=== PATIENT | male | born 1970 | race African-American/Black ===

== ENCOUNTER 2022-01-23 07:02 | Inpatient (IN) ==
[~2022-01-23 07:02] MED LIST: LACTATED RINGERS 1,000 ML IV SCH
[2022-01-23 07:14] LABS: Basophils # 0.1 10*3/uL (0.0-0.2); Basophils % 0.6 % (0.0-0.8); Eosinophils # 0.4 10*3/uL (0.0-0.87); Eosinophils % 2.4 % (0.00-10.9); Hemoglobin 9.2 GM/DL (14.0-18.0); Immature Granulocytes % 0.8 %; Immature Granulocytes Absolute 0.14 #; Lymphocytes # 1.4 10*3/uL (1.4-4.0); Mean Corpuscular HGB Conc 30.7 GM/DL (32-36); Mean Corpuscular Volume 95.8 FL (87-102); Mean Platelet Volume 9.6 FL (9.6-12.0); Monocytes # 2.2 10*3/uL (0.11-0.8); NRBC # 0.04 10*3/uL; Neutrophils % 75.2 % (38.7-73.9); Platelet Count 257 T/CUMM (130-400); Red Blood Count 3.13 MC/CUMM (3.8-5.5); Red Cell Distribution Width 16.4 % (9.3-17.3)
[2022-01-23] MEDS ORDERED: DIAZEPAM 5 MG TABLET PO ONE (07:16)
[2022-01-23 08:12] LABS: Albumin 1.6 G/DL (3.4-5.0); Calcium 8.1 MG/DL (8.5-10.1); Osmolality,Calculated 279.8 MOS/KG (273-304); Potassium 4.3 MMOL/L (3.5-5.1); Total Protein 6.9 G/DL (6.4-8.2)
[2022-01-23] MEDS ORDERED: SEVOFLURANE 1 UNIT/15 MINUTE INH ONE ×7 (09:26→12:37)
[2022-01-23] MEDS ORDERED: propofoL 200 MG/20 ML VIAL IV ONE (09:26)
[2022-01-23] MEDS ORDERED: fentaNYL 100 MCG/2 ML VIAL ONE (09:26)
[2022-01-23] MEDS ORDERED: KETAMINE 500 MG/10 ML VIAL ONE (09:26)
[2022-01-23] MEDS ORDERED: ROCURONIUM 50 MG/5 ML VIAL IV ONE ×2 (09:26→12:15)
[2022-01-23] MEDS ORDERED: LIDOCAINE 2% 5 ML VIAL ONE (09:26)
[2022-01-23] MEDS ORDERED: MIDAZOLAM 2 MG/2 ML VIAL ONE (09:38)
[2022-01-23] MEDS ORDERED: fentaNYL 250 MCG/5 ML VIAL ONE (09:38)
[2022-01-23] MEDS ORDERED: SUFentanil 50 MCG/ML AMP ONE (10:22)
[2022-01-23] MEDS ORDERED: SODIUM CHLORIDE 0.9% 100 ML IV ONE (11:05)
[2022-01-23] MEDS ORDERED: PHENYLEPHRINE 10 MG/1 ML VIAL IV ONE (11:06)
[2022-01-23 11:30] LABS: Protein,Urine Negative (Negative); Urine Appearance Clear (Clear); Urine Color Yellow (Yellow)
[2022-01-23 11:31] LABS: Bilirubin,Urine Negative (Negative); Blood, Urine Negative (Negative); Glucose,Urine (UA) 100 mg/dL (Negative); Ketones,Urine Negative (Negative); Nitrite,Urine Negative (Negative); Urine Urobilinogen 0.2 eU/dL (<2.0)
[2022-01-23 11:32] LABS: RBC,Urine 1 /HPF (0-4)
[2022-01-23] MEDS ORDERED: LACTATED RINGERS 0 ML IV ONE (11:52)
[2022-01-23] MEDS ORDERED: PHENYLEPHRINE 1 MG/10 ML SYRINGE IV ONE (11:52)
[2022-01-23] MEDS ORDERED: NEOSTIGMINE 10 MG/10 ML VIAL ONE (12:15)
[2022-01-23] MEDS ORDERED: GLYCOPYRROLATE 0.4 MG/2 ML VIAL ONE (12:15)
[2022-01-23] MEDS ORDERED: ONDANSETRON 4 MG/2 ML VIAL ONE (12:16)
[2022-01-23] MEDS ORDERED: ONDANSETRON 4 MG/2 ML VIAL IV PRN ×2 (12:29→12:50)
[2022-01-23] MEDS ORDERED: oxyCODONE/ACETAMINOPHEN 5-325 MG TABLET PO PRN ×2 (12:29)
[2022-01-23] MEDS ORDERED: ACETAMINOPHEN 325 MG TABLET PO PRN (12:29)
[2022-01-23] MEDS ORDERED: LACTATED RINGERS 1,000 ML IV ONE (12:36)
[2022-01-23] MEDS: HYDROmorphone 1 MG/1 ML SYRINGE IV PRN ×4 (12:51→20:03)
[2022-01-23] MEDS: MEPERIDINE 25 MG/1 ML VIAL IV PRN ×2 (13:01→13:20)
[2022-01-23] MEDS ORDERED: MEPERIDINE 25 MG/1 ML VIAL ONE (13:01)
[2022-01-23] MEDS ORDERED: MEPERIDINE 50 MG/1 ML VIAL ONE (13:20)
[2022-01-23] MEDS: PIPERACILLIN/TAZOBACTAM 3,375 MG in SODIUM CHLORIDE 0.9% 100 ML IV SCH ×2 (14:21→20:06)
[2022-01-23] MEDS ORDERED: ALBUTEROL/IPRATROPIUM 3 ML NEB RESP TX PRN (15:10)
[2022-01-23] MEDS ORDERED: GLUCAGON 1 MG VIAL IM PRN (15:13)
[2022-01-23] MEDS ORDERED: DEXTROSE 10% 250 ML BAG IV PRN (15:13)
[2022-01-23] MEDS ORDERED: ENOXAPARIN 40 MG/0.4 ML SYRINGE SUBCUT SCH (15:30)
[2022-01-23] MEDS: INSULIN LISPRO 100 UNIT/ML SUBCUT SCH ×2 (16:56→20:05)
[2022-01-24] MEDS: HYDROmorphone 1 MG/1 ML SYRINGE IV PRN ×3 (01:23→12:10)
[2022-01-24] MEDS: PIPERACILLIN/TAZOBACTAM 3,375 MG in SODIUM CHLORIDE 0.9% 100 ML IV SCH ×3 (05:31→20:51)
[2022-01-24 05:59] LABS: Basophils # 0.1 10*3/uL (0.0-0.2); Basophils % 0.2 % (0.0-0.8); Hematocrit 27.6 VOL% (42.0-52.0); Hemoglobin 8.5 GM/DL (14.0-18.0); Immature Granulocytes % 0.9 %; Immature Granulocytes Absolute 0.25 #; Lymphocytes # 0.8 10*3/uL (1.4-4.0); Lymphocytes % 2.8 % (21.2-54.2); Mean Corpuscular HGB Conc 30.8 GM/DL (32-36); Mean Corpuscular Volume 95.2 FL (87-102); Mean Platelet Volume 9.5 FL (9.6-12.0); Monocytes # 2.4 10*3/uL (0.11-0.8); Monocytes % 8.6 % (1.7-12.7); Neutrophils % 87.5 % (38.7-73.9); Platelet Count 232 T/CUMM (130-400); Red Cell Distribution Width 16.1 % (9.3-17.3); White Blood Count 28.2 T/CUMM (4-12)
[2022-01-24 06:20] LABS: Albumin 1.4 G/DL (3.4-5.0); Bilirubin,Total 1.5 MG/DL (0.20-1.00); Calcium 8.1 MG/DL (8.5-10.1); Osmolality,Calculated 282.7 MOS/KG (273-304); Potassium 4.7 MMOL/L (3.5-5.1); Total Protein 6.1 G/DL (6.4-8.2)
[2022-01-24 06:22] LABS: Band Neutrophils 2 % (0-10); Eosinophils 1 % (0-10); Hypochromia 1+; Lymphocytes 1 % (20-55); Platelet Estimate Normal; Total Cells Counted 100
[2022-01-24] MEDS: hydrALAZINE 10 MG TABLET PO SCH ×3 (08:41→20:52)
[2022-01-24] MEDS: INSULIN LISPRO 100 UNIT/ML SUBCUT SCH ×4 (08:41→20:52)
[2022-01-24] MEDS: PANTOPRAZOLE 40 MG TABLET PO SCH (08:41)
[2022-01-24] MEDS: POLYETHYLENE GLYCOL POWDER 17 GM PACK PO SCH (08:41)
[2022-01-24] MEDS: METOPROLOL TARTRATE 100 MG TABLET PO SCH ×2 (08:41→20:52)
[2022-01-24] MEDS ORDERED: NALOXONE 0.4 MG/ML VIAL IV PRN (12:42)
[2022-01-24] MEDS: LACTATED RINGERS 1,000 ML IV SCH (13:35)
[2022-01-24] MEDS: HYDROmorphone PCA 30 MG/30 ML SYRINGE IV SCH (13:35)
[2022-01-24] MEDS ORDERED: HEPARIN 5,000 UNIT/1 ML VIAL SUBCUT SCH (21:00)
[2022-01-25] MEDS: PIPERACILLIN/TAZOBACTAM 3,375 MG in SODIUM CHLORIDE 0.9% 100 ML IV SCH ×3 (04:21→21:13)
[2022-01-25 05:59] LABS: Basophils # 0.1 10*3/uL (0.0-0.2); Basophils % 0.2 % (0.0-0.8); Immature Granulocytes % 1.3 %; Immature Granulocytes Absolute 0.41 #; Lymphocytes # 0.9 10*3/uL (1.4-4.0); Lymphocytes % 2.8 % (21.2-54.2); Mean Corpuscular HGB Conc 30.8 GM/DL (32-36); Mean Corpuscular Volume 94.2 FL (87-102); Mean Platelet Volume 10.6 FL (9.6-12.0); Monocytes # 2.6 10*3/uL (0.11-0.8); Monocytes % 8.3 % (1.7-12.7); Neutrophils % 87.4 % (38.7-73.9); Platelet Count 196 T/CUMM (130-400); Red Blood Count 2.76 MC/CUMM (3.8-5.5); Red Cell Distribution Width 16.1 % (9.3-17.3); White Blood Count 31.7 T/CUMM (4-12)
[2022-01-25 06:20] LABS: Hypochromia Slight; Lymphocytes 3 % (20-55); Microcytosis Slight; Platelet Estimate Adequate; Total Cells Counted 100
[2022-01-25 06:27] LABS: Albumin 1.3 G/DL (3.4-5.0); Bilirubin,Total 1.2 MG/DL (0.20-1.00); Calcium 8.1 MG/DL (8.5-10.1); Osmolality,Calculated 276.2 MOS/KG (273-304); Potassium 4.3 MMOL/L (3.5-5.1); Total Protein 6.6 G/DL (6.4-8.2)
[2022-01-25] MEDS ORDERED: MAGNESIUM HYDROXIDE SUSP 30 ML UDCUP PO ONE (09:02)
[2022-01-25] MEDS: INSULIN LISPRO 100 UNIT/ML SUBCUT SCH ×4 (09:04→21:14)
[2022-01-25] MEDS: PANTOPRAZOLE 40 MG TABLET PO SCH (09:04)
[2022-01-25] MEDS: METOPROLOL TARTRATE 100 MG TABLET PO SCH ×2 (09:04→21:15)
[2022-01-25] MEDS: INSULIN GLARGINE 100 UNIT/ML SUBCUT SCH (09:04)
[2022-01-25] MEDS: hydrALAZINE 10 MG TABLET PO SCH ×3 (09:04→21:15)
[2022-01-25] MEDS: POLYETHYLENE GLYCOL POWDER 17 GM PACK PO SCH (09:25)
[2022-01-25] MEDS: DOCUSATE SODIUM 100 MG CAPSULE PO SCH ×2 (09:40→21:15)
[2022-01-25] MEDS: LACTATED RINGERS 1,000 ML IV SCH (21:14)
[2022-01-25] MEDS ORDERED: BISACODYL 10 MG SUPP RECTAL ONE (22:15)
[2022-01-26] MEDS: PIPERACILLIN/TAZOBACTAM 3,375 MG in SODIUM CHLORIDE 0.9% 100 ML IV SCH ×2 (04:36→15:20)
[2022-01-26 05:12] LABS: Basophils # 0.1 10*3/uL (0.0-0.2); Basophils % 0.2 % (0.0-0.8); Eosinophils % 0.1 % (0.00-10.9); Hematocrit 26.9 VOL% (42.0-52.0); Hemoglobin 8.4 GM/DL (14.0-18.0); Immature Granulocytes % 1.6 %; Immature Granulocytes Absolute 0.49 #; Lymphocytes # 1.1 10*3/uL (1.4-4.0); Lymphocytes % 3.6 % (21.2-54.2); Mean Corpuscular HGB Conc 31.2 GM/DL (32-36); Mean Corpuscular Volume 91.8 FL (87-102); Mean Platelet Volume 9.9 FL (9.6-12.0); Monocytes # 1.8 10*3/uL (0.11-0.8); Monocytes % 5.8 % (1.7-12.7); Neutrophils % 88.7 % (38.7-73.9); Platelet Count 239 T/CUMM (130-400); Red Blood Count 2.93 MC/CUMM (3.8-5.5); Red Cell Distribution Width 15.8 % (9.3-17.3); White Blood Count 31.4 T/CUMM (4-12)
[2022-01-26 05:34] LABS: Hypochromia Slight; Lymphocytes 2 % (20-55); Microcytosis Slight; Platelet Estimate Adequate; Total Cells Counted 100
[2022-01-26 05:44] LABS: Albumin 1.3 G/DL (3.4-5.0); Bilirubin,Total 1.1 MG/DL (0.20-1.00); Calcium 8.4 MG/DL (8.5-10.1); Osmolality,Calculated 274.2 MOS/KG (273-304); Potassium 3.7 MMOL/L (3.5-5.1); Total Protein 6.8 G/DL (6.4-8.2)
[2022-01-26] MEDS ORDERED: LACTATED RINGERS 1,000 ML IV SCH (08:30)
[2022-01-26] MEDS ORDERED: ONDANSETRON 4 MG/2 ML VIAL ONE (08:47)
[2022-01-26] MEDS ORDERED: MIDAZOLAM 2 MG/2 ML VIAL ONE (08:47)
[2022-01-26] MEDS ORDERED: propofoL 200 MG/20 ML VIAL IV ONE (08:47)
[2022-01-26] MEDS ORDERED: LIDOCAINE 2% 5 ML VIAL ONE (08:47)
[2022-01-26] MEDS ORDERED: fentaNYL 100 MCG/2 ML VIAL ONE (08:47)
[2022-01-26] MEDS ORDERED: LINEZOLID INJ 600 MG/300 ML PREMIX IV SCH (10:00)
[2022-01-26] MEDS ORDERED: ONDANSETRON 4 MG/2 ML VIAL IV PRN (10:14)
[2022-01-26] MEDS ORDERED: HYDROmorphone 1 MG/1 ML SYRINGE IV PRN ×3 (10:14→11:59)
[2022-01-26] MEDS: HYDROmorphone PCA 30 MG/30 ML SYRINGE IV SCH (11:09)
[2022-01-26] MEDS: INSULIN LISPRO 100 UNIT/ML SUBCUT SCH ×2 (11:09→12:04)
[2022-01-26 12:02] VITALS: BP 134/84
[2022-01-26] MEDS: PANTOPRAZOLE 40 MG TABLET PO SCH (12:03)
[2022-01-26] MEDS: DOCUSATE SODIUM 100 MG CAPSULE PO SCH (12:03)
[2022-01-26] MEDS: hydrALAZINE 10 MG TABLET PO SCH ×2 (12:03→15:20)
[2022-01-26] MEDS: INSULIN GLARGINE 100 UNIT/ML SUBCUT SCH (12:04)
[2022-01-26] MEDS: POLYETHYLENE GLYCOL POWDER 17 GM PACK PO SCH (12:05)
[2022-01-26] MEDS: METOPROLOL TARTRATE 100 MG TABLET PO SCH (12:08)
== END 2022-01-26 15:00 | DRG 475 ==
LOC: N.OR 07:02 → N.SDSINP 07:03 → N.3E 12:29
PROVIDERS: ADMIT Surgery; ATTEND Surgery

== ENCOUNTER 2022-03-06 14:48 | Inpatient (IN) ==
[2022-03-06] MEDS ORDERED: LACTATED RINGERS 1,000 ML IV ONE (15:28)
[2022-03-06 16:06] LABS: Basophils # 0.1 10*3/uL (0.0-0.2); Basophils % 0.8 % (0.0-0.8); Eosinophils # 0.1 10*3/uL (0.0-0.87); Eosinophils % 0.5 % (0.00-10.9); Hematocrit 27.9 VOL% (42.0-52.0); Hemoglobin 8.6 GM/DL (14.0-18.0); Lymphocytes # 1.6 10*3/uL (1.4-4.0); Lymphocytes % 12.1 % (21.2-54.2); Mean Corpuscular HGB Conc 30.8 GM/DL (32-36); Mean Corpuscular Volume 81.3 FL (87-102); Mean Platelet Volume 8.9 FL (9.6-12.0); Monocytes # 1.3 10*3/uL (0.11-0.8); Monocytes % 10.1 % (1.7-12.7); Neutrophils % 72.7 % (38.7-73.9); Platelet Count 558 T/CUMM (130-400); Red Blood Count 3.43 MC/CUMM (3.8-5.5); Red Cell Distribution Width 17.3 % (9.3-17.3); White Blood Count 12.9 T/CUMM (4-12)
[2022-03-06 16:09] LABS: Bilirubin,Total 0.5 MG/DL (0.20-1.00); Calcium 8.7 MG/DL (8.5-10.1); Osmolality,Calculated 270.4 MOS/KG (273-304); Potassium 3.6 MMOL/L (3.5-5.1); Total Protein 7.4 G/DL (6.4-8.2)
[2022-03-06 16:19] LABS: INR 1.1; PT Patient Result 12.1 SECS (10.1-12.1); Partial Thromboplastin Time 28.8 SECS (23.7-32.9)
[2022-03-06] MEDS ORDERED: ACETAMINOPHEN 325 MG TABLET PO PRN (16:23)
[2022-03-06] MEDS ORDERED: ZALEPLON 5 MG CAPSULE PO PRN (16:45)
[2022-03-06] MEDS ORDERED: MORPHINE 2 MG/1 ML SYRINGE IV PRN (16:45)
[2022-03-06] MEDS ORDERED: ALBUTEROL 2.5 MG/3 ML NEB RESP TX PRN (16:45)
[2022-03-06] MEDS ORDERED: hydrALAZINE 20 MG/1 ML VIAL IV PRN (16:45)
[2022-03-06] MEDS ORDERED: ONDANSETRON 4 MG/2 ML VIAL IV PRN (16:45)
[2022-03-06] MEDS ORDERED: guaiFENesin/DM ER 600-30 MG TABLET PO PRN (16:45)
[2022-03-06] MEDS: LACTATED RINGERS 1,000 ML IV SCH (18:16)
[2022-03-06] MEDS: CEFEPIME 1,000 MG in SODIUM CHLORIDE 0.9% 100 ML IV SCH (18:16)
[2022-03-06] MEDS: DOCUSATE SODIUM 100 MG CAPSULE PO SCH (21:18)
[2022-03-06] MEDS ORDERED: DEXTROSE 10% 250 ML BAG IV PRN (21:33)
[2022-03-06] MEDS ORDERED: GLUCAGON 1 MG VIAL IM PRN (21:33)
[2022-03-06] MEDS: PREGABALIN 50 MG CAPSULE PO SCH (22:45)
[2022-03-06] MEDS: SACUBITRIL/VALSARTAN 49-51 MG TABLET PO SCH (22:46)
[2022-03-06] MEDS: VANCOMYCIN INJ 1,250 MG in SODIUM CHLORIDE 0.9% 250 ML IV SCH (22:46)
[2022-03-06] MEDS: METOPROLOL TARTRATE 100 MG TABLET PO SCH (22:46)
[2022-03-06] MEDS: ROSUVASTATIN 10 MG TABLET PO SCH (22:46)
[2022-03-06] MEDS: ZALEPLON 5 MG CAPSULE PO SCH (22:46)
[2022-03-07] MEDS: CEFEPIME 1,000 MG in SODIUM CHLORIDE 0.9% 100 ML IV SCH ×4 (03:06→20:32)
[2022-03-07] MEDS: LACTATED RINGERS 1,000 ML IV SCH ×2 (04:28→17:06)
[2022-03-07] MEDS: PANTOPRAZOLE 40 MG TABLET PO SCH (06:31)
[2022-03-07 06:36] LABS: Basophils # 0.1 10*3/uL (0.0-0.2); Basophils % 1.2 % (0.0-0.8); Eosinophils # 0.3 10*3/uL (0.0-0.87); Eosinophils % 2.6 % (0.00-10.9); Hematocrit 26.8 VOL% (42.0-52.0); Hemoglobin 8.2 GM/DL (14.0-18.0); Immature Granulocytes % 3.2 %; Immature Granulocytes Absolute 0.34 #; Lymphocytes # 1.2 10*3/uL (1.4-4.0); Lymphocytes % 11.6 % (21.2-54.2); Mean Corpuscular HGB Conc 30.6 GM/DL (32-36); Mean Corpuscular Volume 82.2 FL (87-102); Monocytes # 1.1 10*3/uL (0.11-0.8); Monocytes % 10.7 % (1.7-12.7); Neutrophils % 70.7 % (38.7-73.9); Platelet Count 455 T/CUMM (130-400); Red Blood Count 3.26 MC/CUMM (3.8-5.5); Red Cell Distribution Width 17.6 % (9.3-17.3); White Blood Count 10.6 T/CUMM (4-12)
[2022-03-07] MEDS ORDERED: LIDOCAINE 1%/EPI INJ 20 ML VIAL ONE (06:45)
[2022-03-07] MEDS ORDERED: BUPIVACAINE MPF 0.25% 10 ML VIAL ONE (06:45)
[2022-03-07 07:01] LABS: Calcium 8.8 MG/DL (8.5-10.1); Osmolality,Calculated 280.7 MOS/KG (273-304); Potassium 2.8 MMOL/L (3.5-5.1); Risk Ratio 7.33; Thyroid Stimulating Hormone 4.56 uIU/ml (0.358-3.74); VLDL Cholesterol 24.4 MG/DL
[2022-03-07] MEDS ORDERED: ROCURONIUM 50 MG/5 ML VIAL IV ONE (07:25)
[2022-03-07] MEDS ORDERED: MIDAZOLAM 2 MG/2 ML VIAL ONE (07:25)
[2022-03-07] MEDS ORDERED: propofoL 200 MG/20 ML VIAL IV ONE (07:25)
[2022-03-07] MEDS ORDERED: fentaNYL 100 MCG/2 ML VIAL ONE ×2 (07:25→09:27)
[2022-03-07] MEDS ORDERED: LIDOCAINE 2% 5 ML VIAL ONE (07:25)
[2022-03-07] MEDS ORDERED: ONDANSETRON 4 MG/2 ML VIAL ONE (07:25)
[2022-03-07] MEDS: INSULIN LISPRO 100 UNIT/ML SUBCUT SCH ×4 (08:06→20:31)
[2022-03-07] MEDS: POTASSIUM CHLORIDE RIDER 10 MEQ/100 ML PREMIX IV SCH ×4 (08:12→13:38)
[2022-03-07] MEDS ORDERED: LIDOCAINE 1% 5 ML VIAL ONE (09:05)
[2022-03-07] MEDS ORDERED: ONDANSETRON 4 MG/2 ML VIAL IV PRN (10:07)
[2022-03-07] MEDS: HYDROmorphone 1 MG/1 ML SYRINGE IV PRN ×2 (10:19→10:26)
[2022-03-07] MEDS ORDERED: GLUCAGON 1 MG VIAL IM PRN (11:12)
[2022-03-07] MEDS ORDERED: DEXTROSE 10% 250 ML BAG IV PRN (11:13)
[2022-03-07] MEDS: DOCUSATE SODIUM 100 MG CAPSULE PO SCH ×2 (11:39→20:25)
[2022-03-07] MEDS: MULTIVITAMIN (CENTRUM) TABLET PO SCH (11:40)
[2022-03-07] MEDS: PREGABALIN 50 MG CAPSULE PO SCH ×2 (11:40→20:26)
[2022-03-07] MEDS: DAPAGLIFLOZIN 10 MG TABLET PO SCH (11:40)
[2022-03-07] MEDS: DULoxetine 30 MG CAPSULE PO SCH (11:40)
[2022-03-07] MEDS: CALCIUM (CARBONATE)/VITAMIN D 600 MG-400 UNIT TABLET PO SCH (11:40)
[2022-03-07] MEDS: METOPROLOL TARTRATE 100 MG TABLET PO SCH ×2 (11:41→20:26)
[2022-03-07] MEDS: CHOLECALCIFEROL 1,000 UNIT TABLET PO SCH (11:43)
[2022-03-07] MEDS: SACUBITRIL/VALSARTAN 49-51 MG TABLET PO SCH ×2 (11:43→20:25)
[2022-03-07] MEDS: VANCOMYCIN INJ 1,250 MG in SODIUM CHLORIDE 0.9% 250 ML IV SCH ×2 (12:04→21:47)
[2022-03-07] MEDS ORDERED: POTASSIUM CHLORIDE 20 MEQ TABLET PO ONE (14:00)
[2022-03-07] MEDS: ROSUVASTATIN 10 MG TABLET PO SCH (20:25)
[2022-03-07] MEDS: ZALEPLON 5 MG CAPSULE PO SCH (20:32)
[2022-03-08] MEDS: LACTATED RINGERS 1,000 ML IV SCH ×3 (00:04→20:31)
[2022-03-08] MEDS: CEFEPIME 1,000 MG in SODIUM CHLORIDE 0.9% 100 ML IV SCH ×4 (02:03→20:29)
[2022-03-08] MEDS: PANTOPRAZOLE 40 MG TABLET PO SCH (05:40)
[2022-03-08 06:17] LABS: Basophils # 0.1 10*3/uL (0.0-0.2); Eosinophils # 0.4 10*3/uL (0.0-0.87); Eosinophils % 3.3 % (0.00-10.9); Hematocrit 27.4 VOL% (42.0-52.0); Hemoglobin 8.3 GM/DL (14.0-18.0); Immature Granulocytes % 2.4 %; Immature Granulocytes Absolute 0.26 #; Lymphocytes # 1.5 10*3/uL (1.4-4.0); Lymphocytes % 13.5 % (21.2-54.2); Mean Corpuscular HGB Conc 30.3 GM/DL (32-36); Mean Corpuscular Volume 82.8 FL (87-102); Mean Platelet Volume 9.2 FL (9.6-12.0); Monocytes # 1.2 10*3/uL (0.11-0.8); Monocytes % 10.5 % (1.7-12.7); Neutrophils % 69.3 % (38.7-73.9); Platelet Count 489 T/CUMM (130-400); Red Blood Count 3.31 MC/CUMM (3.8-5.5); Red Cell Distribution Width 17.6 % (9.3-17.3)
[2022-03-08 06:33] LABS: Calcium 8.4 MG/DL (8.5-10.1); Osmolality,Calculated 276.7 MOS/KG (273-304); Potassium 3.7 MMOL/L (3.5-5.1)
[2022-03-08] MEDS: METOPROLOL TARTRATE 100 MG TABLET PO SCH ×2 (09:48→20:30)
[2022-03-08] MEDS: DAPAGLIFLOZIN 10 MG TABLET PO SCH (09:48)
[2022-03-08] MEDS: CHOLECALCIFEROL 1,000 UNIT TABLET PO SCH (09:49)
[2022-03-08] MEDS: DOCUSATE SODIUM 100 MG CAPSULE PO SCH ×2 (09:49→20:30)
[2022-03-08] MEDS: CALCIUM (CARBONATE)/VITAMIN D 600 MG-400 UNIT TABLET PO SCH (09:49)
[2022-03-08] MEDS: DULoxetine 30 MG CAPSULE PO SCH (09:49)
[2022-03-08] MEDS: PREGABALIN 50 MG CAPSULE PO SCH ×2 (09:49→20:31)
[2022-03-08] MEDS: SACUBITRIL/VALSARTAN 49-51 MG TABLET PO SCH ×2 (09:49→20:30)
[2022-03-08] MEDS: MULTIVITAMIN (CENTRUM) TABLET PO SCH (09:49)
[2022-03-08] MEDS: INSULIN LISPRO 100 UNIT/ML SUBCUT SCH ×4 (09:51→20:31)
[2022-03-08] MEDS: INSULIN GLARGINE 100 UNIT/ML SUBCUT SCH (09:51)
[2022-03-08] MEDS: VANCOMYCIN INJ 1,250 MG in SODIUM CHLORIDE 0.9% 250 ML IV SCH ×2 (10:20→21:54)
[2022-03-08] MEDS: ZALEPLON 5 MG CAPSULE PO SCH (20:30)
[2022-03-08] MEDS: ROSUVASTATIN 10 MG TABLET PO SCH (20:30)
[2022-03-08] MEDS: POLYETHYLENE GLYCOL POWDER 17 GM PACK PO SCH (22:01)
[2022-03-09] MEDS: CEFEPIME 1,000 MG in SODIUM CHLORIDE 0.9% 100 ML IV SCH ×4 (02:16→20:40)
[2022-03-09] MEDS: PANTOPRAZOLE 40 MG TABLET PO SCH (05:49)
[2022-03-09 06:08] LABS: Basophils # 0.1 10*3/uL (0.0-0.2); Basophils % 0.9 % (0.0-0.8); Eosinophils # 0.4 10*3/uL (0.0-0.87); Eosinophils % 4.2 % (0.00-10.9); Hematocrit 27.3 VOL% (42.0-52.0); Hemoglobin 8.2 GM/DL (14.0-18.0); Immature Granulocytes % 2.4 %; Immature Granulocytes Absolute 0.25 #; Lymphocytes # 1.7 10*3/uL (1.4-4.0); Lymphocytes % 16.3 % (21.2-54.2); Mean Platelet Volume 9.1 FL (9.6-12.0); Monocytes # 1.2 10*3/uL (0.11-0.8); Monocytes % 10.9 % (1.7-12.7); Neutrophils % 65.3 % (38.7-73.9); Platelet Count 493 T/CUMM (130-400); Red Blood Count 3.29 MC/CUMM (3.8-5.5); Red Cell Distribution Width 17.6 % (9.3-17.3); White Blood Count 10.6 T/CUMM (4-12)
[2022-03-09 06:32] LABS: Calcium 8.9 MG/DL (8.5-10.1); Osmolality,Calculated 278.8 MOS/KG (273-304); Potassium 3.6 MMOL/L (3.5-5.1)
[2022-03-09] MEDS: INSULIN GLARGINE 100 UNIT/ML SUBCUT SCH (09:45)
[2022-03-09] MEDS: INSULIN LISPRO 100 UNIT/ML SUBCUT SCH ×4 (09:45→21:11)
[2022-03-09] MEDS: METOPROLOL TARTRATE 100 MG TABLET PO SCH ×2 (09:46→20:41)
[2022-03-09] MEDS: MULTIVITAMIN (CENTRUM) TABLET PO SCH (09:46)
[2022-03-09] MEDS: DOCUSATE SODIUM 100 MG CAPSULE PO SCH ×2 (09:46→20:40)
[2022-03-09] MEDS: CHOLECALCIFEROL 1,000 UNIT TABLET PO SCH (09:46)
[2022-03-09] MEDS: DAPAGLIFLOZIN 10 MG TABLET PO SCH (09:46)
[2022-03-09] MEDS: SACUBITRIL/VALSARTAN 49-51 MG TABLET PO SCH ×2 (09:46→20:40)
[2022-03-09] MEDS: PREGABALIN 50 MG CAPSULE PO SCH ×2 (09:46→20:40)
[2022-03-09] MEDS: CALCIUM (CARBONATE)/VITAMIN D 600 MG-400 UNIT TABLET PO SCH (09:46)
[2022-03-09] MEDS: DULoxetine 30 MG CAPSULE PO SCH (09:46)
[2022-03-09] MEDS: SODIUM HYPOCHLORITE 0.25% IRRIG 473 ML BOTTLE TOP SCH (10:43)
[2022-03-09] MEDS: POLYETHYLENE GLYCOL POWDER 17 GM PACK PO SCH (10:43)
[2022-03-09] MEDS: VANCOMYCIN INJ 1,250 MG in SODIUM CHLORIDE 0.9% 250 ML IV SCH (11:23)
[2022-03-09] MEDS ORDERED: DIAZEPAM 5 MG TABLET PO ONE (13:38)
[2022-03-09] MEDS ORDERED: MIDAZOLAM 2 MG/2 ML VIAL IV ONE (13:38)
[2022-03-09] MEDS ORDERED: fentaNYL 100 MCG/2 ML VIAL IV ONE (13:38)
[2022-03-09] MEDS: LACTATED RINGERS 1,000 ML IV SCH ×2 (16:48→16:49)
[2022-03-09] MEDS: ZALEPLON 5 MG CAPSULE PO SCH (20:40)
[2022-03-09] MEDS: ROSUVASTATIN 10 MG TABLET PO SCH (20:41)
[2022-03-09] MEDS: MENTHOL/ZINC OXIDE OINT 71 GM JAR TOP SCH (20:43)
[2022-03-10] MEDS: CEFEPIME 1,000 MG in SODIUM CHLORIDE 0.9% 100 ML IV SCH ×2 (02:15→09:50)
[2022-03-10] MEDS: LACTATED RINGERS 1,000 ML IV SCH (02:19)
[2022-03-10] MEDS: PANTOPRAZOLE 40 MG TABLET PO SCH (06:20)
[2022-03-10] MEDS: SACUBITRIL/VALSARTAN 49-51 MG TABLET PO SCH (08:40)
[2022-03-10] MEDS: DOCUSATE SODIUM 100 MG CAPSULE PO SCH (08:40)
[2022-03-10] MEDS: CALCIUM (CARBONATE)/VITAMIN D 600 MG-400 UNIT TABLET PO SCH (08:40)
[2022-03-10] MEDS: METOPROLOL TARTRATE 100 MG TABLET PO SCH (08:40)
[2022-03-10] MEDS: CHOLECALCIFEROL 1,000 UNIT TABLET PO SCH (08:40)
[2022-03-10] MEDS: MULTIVITAMIN (CENTRUM) TABLET PO SCH (08:40)
[2022-03-10] MEDS: DULoxetine 30 MG CAPSULE PO SCH (08:40)
[2022-03-10] MEDS: PREGABALIN 50 MG CAPSULE PO SCH (08:41)
[2022-03-10] MEDS: DAPAGLIFLOZIN 10 MG TABLET PO SCH (08:41)
[2022-03-10] MEDS: INSULIN LISPRO 100 UNIT/ML SUBCUT SCH ×2 (08:42→11:48)
[2022-03-10] MEDS: INSULIN GLARGINE 100 UNIT/ML SUBCUT SCH (08:42)
[2022-03-10] MEDS: SODIUM HYPOCHLORITE 0.25% IRRIG 473 ML BOTTLE TOP SCH (08:43)
[2022-03-10] MEDS: MENTHOL/ZINC OXIDE OINT 71 GM JAR TOP SCH (08:43)
[2022-03-10] MEDS: POLYETHYLENE GLYCOL POWDER 17 GM PACK PO SCH (08:44)
[2022-03-10] MEDS ORDERED: VANCOMYCIN INJ 1,250 MG in SODIUM CHLORIDE 0.9% 250 ML IV SCH (10:00)
[2022-03-10 11:43] VITALS: BP 151/87
== END 2022-03-10 14:13 | disposition home health service (06) | DRG 863 ==
LOC: N.ED 14:48 → SUATTDRO 16:23 → N.EDINP 16:23 → N.3E 17:28
PROVIDERS: ADMIT Internal Medicine; ATTEND Emergency Medicine